=== PATIENT | female | born 1980 | race Two or more races ===

== ENCOUNTER 2024-08-03 19:16 | Emergency (ER) | payer OTHER ==
[~2024-08-03] VITALS: Ht 162.6 cm; Wt 63.0 kg
[~2024-08-03 19:16] MED LIST: OBSTETRIX DHA1 EACH PO; SINGULAIR 10MG10 MG PO
[2024-08-03] MEDS ORDERED: ZYRTEC10 M3 PO (19:26)
[2024-08-03] MEDS ORDERED: [UNRECOGNIZED DRUG - OTHER] PO (19:26)
[2024-08-03] MEDS ORDERED: CHOLESTYRAMINE/ASPARTAME LIGHT 4 G/PKT PACKET PO ONE (20:45)
[2024-08-03] MEDS ORDERED: 0.9 % SODIUM CHLORIDE 1,000 ML IV ONE (21:00)
[2024-08-03] MEDS ORDERED: DIPHENHYDRAMINE HCL 50 MG/ML VIAL 1ML IV ONE (21:00)
[2024-08-03] MEDS ORDERED: METHYLPREDNISOLONE SOD SUCC 40 MG VIAL IV ONE (21:00)
[2024-08-03] MEDS ORDERED: DIPHENHYDRAMINE HCL 50 MG/ML VIAL 1ML ONE (21:21)
[2024-08-03] MEDS ORDERED: METHYLPREDNISOLONE SOD SUCC 40 MG VIAL ONE (21:22)
[2024-08-03] MEDS ORDERED: WATER FOR INJ.,BACTERIOSTATIC 30 ML VIAL IJ ONE (21:22)
[2024-08-03 22:32] LABS: BASO % 0.6 % (0.1-1.2); EOS # 0.09 (0.04-0.54); EOS % 1.3 % (0.7-7.0); HEMATOCRIT 40.5 % (34.1-44.9); HEMOGLOBIN 13.7 g/dL (11.2-15.7); LYMPH # 1.54 (1.18-3.74); LYMPH % 22.5 % (19.3-53.1); MEAN CORPUSCULAR HEMOGLOBIN 30.2 pg (25.6-32.2); MONO # 0.38 (0.24-0.82); MONO % 5.6 % (4.7-12.5); NEUT # 4.78 (1.56-6.13); NEUT % 69.9 % (34.0-71.1); PLATELET COUNT 368 K/uL (163-369); RED BLOOD COUNT 4.53 M/uL (3.93-5.22); RED CELL DISTRIBUTION WIDTH 12.1 % (11.6-14.4)
[2024-08-03 22:56] LABS: ALBUMIN 4.1 gm/dL (3.4-5.0); ALKALINE PHOSPHATASE 63 U/L (50-136); ALT/SGPT 38 U/L (12-78); ANION GAP 11 (10.0-20.0); AST/SGOT 37 U/L (15-37); BILIRUBIN TOTAL 0.57 mg/dL (0.3-1.2); BLOOD UREA NITROGEN 7 mg/dL (7-18); BUN CREA RATIO 8 (7.0-25.0); CALCIUM 9.8 mg/dL (8.5-10.1); CARBON DIOXIDE 27 mEq/L (21-32); CHLORIDE 104 mmol/L (98-107); CREATININE SERUM 0.84 mg/dL (0.55-1.02); GFR 74.72; GLUCOSE FASTING 87 mg/dL (65-100); OSMOLALITY SERUM 273 MOSM/KG (275-295); POTASSIUM 4.15 mEq/L (3.5-5.1); SODIUM 138 mmol/L (136-145); TOTAL PROTEIN 8.1 gm/dL (6.4-8.2)
[2024-08-03 22:59] LABS: HCG QUANTITATIVE < 1 mUI/mL (1-3)
[2024-08-03 23:01] LABS: INR 0.96; PARTIAL THROMBOPLASTIN TIME 25.1 SECONDS (22.0-34.0); PROTHROMBIN TIME 10.5 SECONDS (9.0-11.5)
[2024-08-03 23:22] LABS: URINE APPEARANCE Clear; URINE BILIRRUBIN Negative (NEGATIVE); URINE BLOOD Moderate; URINE COLOR Yellow; URINE GLUCOSE Negative (NEGATIVE); URINE LEUKOCYTE Negative; URINE NITRATE Negative; URINE PROTEIN Negative (NEGATIVE); URINE UROBILINOGEN 0.2 E.U./dl
[2024-08-03 23:30] LABS: URINE BACTERIA 31.8 uL (0.0-1933); URINE EPITHELIAL CELLS 6.3 uL (0.0-38.8); URINE WBC 1.8 uL (0.0-23.2)
[2024-08-03 23:42] LABS: URINE CAST 0.14 uL (0.0-1.40); URINE KETONE 40 (NEGATIVE)
[2024-08-04] MEDS ORDERED: LEVSIN/SL0.125 MG SL (02:27)
[2024-08-04] MEDS ORDERED: INTESTINEX680 M2 PO (02:27)
== END 2024-08-04 03:47 ==
LOC: ER 19:16
PROVIDERS: General Practice
DX: R19.7 Diarrhea, unspecified (principal); Z91.013 Allergy to seafood; J45.909 Unspecified asthma, uncomplicated
CPT/HCPCS: 36415; 74177; Q9965